=== PATIENT | female | born 1965 | race Caucasian/White ===

== ENCOUNTER 2018-09-11 13:06 | Emergency (ER) | payer OTHER ==
[2018-09-11] MEDS ORDERED: Acetaminophen 325 MG Tab PO ONE (13:25)
--- NOTE | 2018-09-11 13:30 | EDM.PDOC ---
ED HPI GENERAL MEDICAL PROBLEM - General Chief Complaint: Respiratory Problem Stated Complaint: FLU SX Time Seen by Provider: 09/11/18 13:20 Source of Information: Reports: Patient History Limitations: Reports: No Limitations - History of Present Illness INITIAL COMMENTS - FREE TEXT/NARRATIVE: 52-year-old female presents to the ED with acute onset of upper respiratory tract infection with harsh paroxysmal sometimes productive cough. This all started suddenly yesterday afternoon. This morning she has a diffuse headache low back discomfort sore throat. She did eat breakfast this morning. She has been exposed to influenza type A 2 with her daughter and granddaughter being recently diagnosed within the last week. 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 She did have a flu shot last year she's been taking ibuprofen for headache, fever and body ache relief. Onset: Sudden Onset Date: 09/10/18 Onset Time: 16:00 Duration: Hour(s): Location: Reports: Neck, Chest (Sore throat), Generalized ( paroxysmal minimally productive cough generalized myalgia with headache ) Quality: Reports: Ache (Generalized myalgia), Other Severity: Moderate Improves with: Reports: Medication (Motrin brings the temperature down) Worsens with: Reports: None Context: Reports: Sick Contact. Denies: Activity, Exercise, Lifting, Trauma ( Exposure to influenza A and her daughter and granddaughter), Other Associated Symptoms: Reports: Chest Pain (Occasional sputum production), Cough, cough w sputum, Fever/Chills, Headaches, Loss of Appetite, Malaise, Weakness. 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.) Generalized Pain Score (Numeric/FACES): 5 - Related Data Allergies Allergy/AdvReac Type Severity Reaction Status Date / Time aloe vera Allergy Hives Verified 01/09/16 12:02 [From Lanacane with Aloe] benzethonium chloride Allergy Hives Verified 01/09/16 12:02 [From Lanacane with Aloe] benzocaine Allergy Hives Verified 01/09/16 12:02 [From Lanacane with Aloe] Sulfa (Sulfonamide Allergy Hives Verified 01/09/16 12:02 Antibiotics) Home Meds: Home Meds Ibuprofen 3 tab PO Q8H PRN 11/05/15 [History] Multivitamin [Multivitamins] 1 each PO DAILY 11/05/15 [History] Cetirizine HCl [Zyrtec] 1 tab PO DAILY 01/09/16 [History] Hydrocodone/Chlorphen P-Stirex [Tussionex Pennkinetic Susp] 5 ml PO Q12H PRN # 60 ml 09/11/18 [Rx] Oseltamivir [Tamiflu] 75 mg PO BID #10 cap 09/11/18 [Rx] Past Medical History 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 Denies: Wheezing, Pleuritic Chest Pain Cardiovascular: Reports: Chest Pain, Lightheadedness. Denies: Blood Pressure Problem (From coughing), Claudication, Dyspnea on Exertion, Edema, Orthopnea, Palpitations Endocrine: Reports: Fatigue GI/Abdominal: Reports: Decreased Appetite : Reports: No Symptoms Musculoskeletal: Reports: Muscle Pain (Diffuse myalgia particularly her low back musculature) Neurological: Reports: Dizziness Psychiatric: Reports: No Symptoms Hematologic/Lymphatic: Reports: No Symptoms Immunologic: Reports: No Symptoms ED EXAM, GENERAL - Physical Exam Exam: See Below Exam Limited By: No Limitations General Appearance: Alert, WD/WN, Moderate Distress, Other (She is very warm to palpation.) Eye Exam: Bilateral Eye: Normal Inspection Ears: Normal TMs Nose: Other Throat/Mouth: Other (Minimal nasal coryza) Head: Atraumatic ( oropharynx is inflamed from coughing.), Normocephalic Neck: Normal Inspection, Supple, Non-Tender, Full Range of Motion. No: Carotid Bruit, Lymphadenopathy (L), Lymphadenopathy (R) Respiratory/Chest: No Respiratory Distress, Lungs Clear, Normal Breath Sounds, No Accessory Muscle Use, Respiratory Distress (Mild tachypnea), Other Cardiovascular: Normal Peripheral Pulses, Regular Rate, Rhythm, No Murmur ( Intermittent paroxysmal cough), No Rub, Tachycardia (Resting tachycardia 1 14/m presumably due to fever) Peripheral Pulses: 3+: Posterior Tibial (L), Posterior Tibial (R), Dorsalis Pedis (L), Dorsalis Pedis (R) GI/Abdominal: Normal Bowel Sounds, Soft, Non-Tender, No Organomegaly Back Exam: Normal Inspection, Full Range of Motion. No: CVA Tenderness (L), CVA Tenderness (R) Extremities: Normal Inspection, Normal Range of Motion, Non-Tender, Normal Capillary Refill Neurological: Alert, Oriented, CN II-XII Intact, Normal Cognition Psychiatric: Normal Affect Skin Exam: Warm, Dry, Intact, Normal Color, No Rash Course - Vital Signs Last Recorded V/S: Last Vital Signs Temp 37.7 C 09/11/18 13:41 Pulse 114 H 09/11/18 13:16 Resp 20 09/11/18 13:16 BP Pulse Ox 99 09/11/18 13:16 - Orders/Labs/Meds Meds: Medications Discontinued Medications Generic Name Dose Route Start Last Admin Trade Name Freq PRN Reason Stop Dose Admin Acetaminophen 975 mg 09/11/18 13:25 09/11/18 13:41 Tylenol PO 09/11/18 13:26 975 mg NOW ONE Administration - Radiology Interpretation Free Text/Narrative:: 52-year-old female presents to the ED with acute onset of illness starting yesterday afternoon. She then developed chills and cough overnight with diffuse myalgia and headache. She's been exposed to influenza A via her daughter and granddaughter who were diagnosed positive last week. 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 She has all the signs and symptoms of influenza. Nurses have already done influenza screen. Doing Tylenol 975 mg by mouth for fever relief at this time - Re-Assessments/Exams Free Text/Narrative Re-Assessment/Exam: 09/11/18 14:04 influenza screen was positive for the type A virus. Patient will therefore be started on Tamiflu 75 mg twice a day for the next 5 days. She' ll continue Motrin 600 mg every 6 hours as needed for fever, headache, body ache relief. Departure - Departure Time of Disposition: 14:04 Disposition: Home, Self-Care 01 Condition: Fair Clinical Impression: Influenza A, Influenza - Discharge Information *PRESCRIPTION DRUG MONITORING PROGRAM REVIEWED*: Not Applicable *COPY OF PRESCRIPTION DRUG MONITORING REPORT IN PATIENT KESHAWN: Not Applicable Prescriptions: Hydrocodone/Chlorphen P-Stirex [Tussionex Pennkinetic Susp] 5 ml PO Q12H PRN # 60 ml PRN Reason: Cough relief Oseltamivir [Tamiflu] 75 mg PO BID #10 cap Referrals: Larry Galvin PA [Primary Care Provider] - Forms: ED Department Discharge, ED Return to Work/School Form Additional Instructions: Evaluation in the emergency him today in regards to acute onset of illness with fever, headache chills and body ache. Associated paroxysmal nonproductive cough. The symptoms of influenza infection. You have been exposed influenza A via daughter and granddaughter. Screening for influenza today was positive for the type a virus. Treatment is therefore Tamiflu 75 mg twice daily for the next 5 days. Continue Motrin 600 mg every 6 hours needed for fever, body ache, headache relief. To fluids and diet as tolerated. Off syrup is Tussionex 5 mils every 12 hours as needed for cough relief. Are considered contagious to others through droplet or coughing for a week from the time you develop symptoms. For will not be able to return to work till next
== END 2018-09-11 14:31 | disposition home or self-care (01) ==
LOC: JD.ED 13:06
DX: J10.1 Influenza due to other identified influenza virus with other respiratory manifestations (principal); Z79.899 Other long term (current) drug therapy; Z88.2 Allergy status to sulfonamides; Z91.09 Other allergy status, other than to drugs and biological substances
CPT/HCPCS: 87804; 99283; A9270